=== PATIENT | male | born 1960 | race Caucasian/White ===

== ENCOUNTER 2021-12-28 20:29 | Observation (INO) ==
[2021-12-28 20:55] LABS: ABS Basophils 0.1 10^3/ul (0-0.2); ABS Eosinophils 0.2 10^3/ul (0-0.6); ABS Lymphocytes 1.1 10^3/ul (1.0-4.8); ABS Monocytes 0.9 10^3/ul (0-0.8); ABS Neutrophils 7.8 10^3/ul (1.5-7.7); Eosinophil % 1.7 %; Hematocrit 41 % (42-52); Hemoglobin 14.1 g/dL (14.0-18.0); Lymphocyte % 10.8 %; Mean Corpuscular HGB Conc 34 g/dL (31-36); Mean Corpuscular Hemoglobin 31 pg (27-31); Mean Corpuscular Volume 91 fL (80-94); Nucleated Red Blood Cells % 0.1; Platelet Count 128 10^3/uL (150-450); Red Blood Count 4.53 10^6 /uL (4.18-5.48); Red Cell Distribution Width 14 % (10-15)
[2021-12-28 21:12] LABS: INR 1.16 (0.89-1.11)
[2021-12-28 21:33] LABS: Albumin/Globulin Ratio 1.5 (1-3); Calcium 9.1 mg/dL (8.6-10.3); Globulin 2.7 g/dL (2-4); Potassium 3.7 mmol/L (3.5-5.0); Total Bilirubin 1.7 mg/dL (0.2-1.0); Total Protein 6.7 g/dL (6.4-8.9); eGFR CKD-EPI 106.7 (>60)
[2021-12-28 22:38] LABS: High Sensitivity Troponin 1 Hr 5 pg/mL (<20)
[2021-12-29] MEDS ORDERED: Al Hydrox/Mg Hydrox/Simet LIQ 30 ML UDC PO PRN (00:07)
[2021-12-29] MEDS ORDERED: Enoxaparin 40 MG/0.4 ML SYR SUBCUT SCH (01:00)
[2021-12-29] MEDS ORDERED: Iohexol 350 (CONTRAST) 500 ML MDV IV ONE (01:54)
[2021-12-29 02:37] LABS: C Reactive Protein 24.39 mg/L (<8.01)
[2021-12-29] MEDS ORDERED: Aspirin EC 81 mg TAB.EC (enteric coated) PO SCH (09:00)
[2021-12-29] MEDS ORDERED: Regadenoson 0.4 MG/5 ML SYRINGE ONE (09:17)
[2021-12-29 10:46] VITALS: BP 107/63
== END 2021-12-29 23:54 | disposition home or self-care (01) ==
LOC: EDHOLD 20:29 → ED 20:29 → SUATTDRO 23:53 → EDHOLD 12-29 10:45
PROVIDERS: ADMIT Internal Medicine; ATTEND Hospitalist